=== PATIENT | male | born 2000 | race Hispanic/Latino ===

== ENCOUNTER 2021-06-03 21:58 | Emergency (ER) | payer OTHER ==
[~2021-06-03] VITALS: Ht 170.2 cm; Wt 136.1 kg
[2021-06-03] MEDS ORDERED: ACETAMINOPHEN 325 MG TAB PO ONE (22:15)
[2021-06-03] MEDS ORDERED: ONDANSETRON ODT4 MG PO (23:28)
[2021-06-04] MEDS ORDERED: GUAIFENESIN 600MG/DEXTROMETHORPHAN 30MG TABSR PO SCH (09:00)
== END 2021-06-04 00:35 | disposition home or self-care (01) ==
LOC: ER 22:33
DX: U07.1 COVID-19 (principal); R06.02 Shortness of breath; R05 Cough; R09.81 Nasal congestion; Z71.89 Other specified counseling
CPT/HCPCS: 99283

== ENCOUNTER 2021-06-04 08:41 | Inpatient (IN) | payer OTHER ==
[~2021-06-04] VITALS: Ht 170.2 cm; Wt 136.1 kg
[~2021-06-04 08:41] MED LIST: ONDANSETRON ODT4 MG PO
[2021-06-04 09:25] LABS: BASOPHILS % 0.2 % (0.0-1.0); HEMATOCRIT 44.1 % (38.2-49.6); HEMOGLOBIN 14.7 g/dL (14.0-18.0); LYMPHOCYTES # (AUTO) 1.1 (1.0-3.2); LYMPHOCYTES % 24.3 % (18.0-39.1); MEAN CORPUSCULAR HEMOGLOBIN 29.1 pg (28-32); MEAN CORPUSCULAR HGB CONC 33.3 g/dL (31-35); MEAN CORPUSCULAR VOLUME 87.3 fL (81-99); MONOCYTES # (AUTO) 0.3 (0.2-0.8); MONOCYTES % 5.9 % (4.4-11.3); NEUTROPHILS # (AUTO) 3.1 (2.1-6.9); NEUTROPHILS % 69.4 % (38.7-80.0); PLATELET COUNT 196 x10e3/uL (140-360); RED BLOOD COUNT 5.05 x10e6/uL (4.3-5.7); RED CELL DISTRIBUTION WIDTH 12.4 % (11.7-14.4)
[2021-06-04 09:50] LABS: ALBUMIN 3.8 g/dL (3.5-5.0); ALBUMIN/GLOBULIN RATIO 0.9 (0.8-2.0); ANION GAP 14.1 mmol/L (8-16); CALCIUM 8.7 mg/dL (8.4-10.2); CREATININE, SERUM 0.99 mg/dL (0.72-1.25); POTASSIUM 4.1 mmol/L (3.5-5.1)
[2021-06-04] MEDS: ACETAMINOPHEN 325 MG TAB PO PRN ×3 (10:20→20:14)
[2021-06-04] MEDS ORDERED: REMDESIVIR 200MG/NS 100ML 200 MG in SODIUM CHLORIDE 0.9% 100 ML 100 ML IV ONE (11:45)
[2021-06-04] MEDS ORDERED: ZOLPIDEM TARTRATE 5 MG TAB PO PRN (12:30)
[2021-06-04] MEDS ORDERED: LACTATED RINGER'S 1,000 ML INJ ONE (12:30)
[2021-06-04] MEDS ORDERED: IOPAMIDOL 370 MG/ML 200 ML INFUS..BTL INJ ONE (13:43)
[2021-06-04] MEDS ORDERED: SODIUM CHLORIDE 0.9% 50ML 50 ML ONE (13:43)
[2021-06-04] MEDS: DEXAMETHASONE PHOS 4MG/ML 5ML MULTIDOSE VIAL IV SCH (14:07)
[2021-06-04] MEDS: CEFTRIAXONE 1 GM in SODIUM CHLORIDE 0.9% 50ML 50 ML IV SCH (15:26)
[2021-06-04] MEDS: ASCORBIC ACID 500 MG TAB PO SCH (17:06)
[2021-06-04 18:46] VITALS: BP 118/71
[2021-06-04 19:30] VITALS: BP 118/71
[2021-06-04 20:00] VITALS: BP 111/62
[2021-06-05] VITALS (11 sets, daily range): BP systolic 108–130; BP diastolic 55–78
[2021-06-05 07:49] LABS: BASOPHILS % 0.3 % (0.0-1.0); HEMATOCRIT 43.7 % (38.2-49.6); HEMOGLOBIN 14.3 g/dL (14.0-18.0); LYMPHOCYTES # (AUTO) 1.2 (1.0-3.2); LYMPHOCYTES % 35.7 % (18.0-39.1); MEAN CORPUSCULAR HEMOGLOBIN 28.8 pg (28-32); MEAN CORPUSCULAR HGB CONC 32.7 g/dL (31-35); MEAN CORPUSCULAR VOLUME 88.1 fL (81-99); MONOCYTES # (AUTO) 0.4 (0.2-0.8); MONOCYTES % 11.3 % (4.4-11.3); NEUTROPHILS # (AUTO) 1.7 (2.1-6.9); NEUTROPHILS % 51.8 % (38.7-80.0); PLATELET COUNT 233 x10e3/uL (140-360); RED BLOOD COUNT 4.96 x10e6/uL (4.3-5.7); RED CELL DISTRIBUTION WIDTH 12.3 % (11.7-14.4)
[2021-06-05 08:05] LABS: ALBUMIN 3.4 g/dL (3.5-5.0); ALBUMIN/GLOBULIN RATIO 0.8 (0.8-2.0); ANION GAP 13.9 mmol/L (8-16); CALCIUM 8.7 mg/dL (8.4-10.2); CREATININE, SERUM 0.69 mg/dL (0.72-1.25); POTASSIUM 3.9 mmol/L (3.5-5.1)
[2021-06-05] MEDS: CEFTRIAXONE 1 GM in SODIUM CHLORIDE 0.9% 50ML 50 ML IV SCH (09:36)
[2021-06-05] MEDS: ENOXAPARIN SOD INJ 40 MG/0.4 ML SYR SC SCH (09:36)
[2021-06-05] MEDS: ASCORBIC ACID 500 MG TAB PO SCH ×2 (09:36→17:02)
[2021-06-05] MEDS: ZINC SULFATE 220 MG CAP PO SCH (09:36)
[2021-06-05] MEDS: DEXAMETHASONE PHOS 4MG/ML 5ML MULTIDOSE VIAL IV SCH (10:41)
[2021-06-05] MEDS ORDERED: DEXAMETHASONE SOD PHOS 10 MG/1 ML VIAL ONE (10:50)
[2021-06-05] MEDS ORDERED: REMDESIVIR 100MG/NS 100ML 100 MG in SODIUM CHLORIDE 0.9% 100 ML 100 ML IV SCH (12:00)
[2021-06-05] MEDS: REMDESIVIR 100MG/NS 100ML 100 MG in SODIUM CHLORIDE 0.9% 100 ML 100 ML IV SCH (20:00)
[2021-06-06] VITALS (9 sets, daily range): BP systolic 101–141; BP diastolic 49–76
[2021-06-06 06:21] LABS: HEMATOCRIT 41.3 % (38.2-49.6); HEMOGLOBIN 13.8 g/dL (14.0-18.0); LYMPHOCYTES # (AUTO) 0.9 (1.0-3.2); LYMPHOCYTES % 17.7 % (18.0-39.1); MEAN CORPUSCULAR HEMOGLOBIN 29.4 pg (28-32); MEAN CORPUSCULAR HGB CONC 33.4 g/dL (31-35); MEAN CORPUSCULAR VOLUME 87.9 fL (81-99); MONOCYTES # (AUTO) 0.5 (0.2-0.8); MONOCYTES % 9.8 % (4.4-11.3); NEUTROPHILS # (AUTO) 3.7 (2.1-6.9); NEUTROPHILS % 71.9 % (38.7-80.0); PLATELET COUNT 276 x10e3/uL (140-360); RED CELL DISTRIBUTION WIDTH 12.2 % (11.7-14.4)
[2021-06-06 06:56] LABS: ALBUMIN 3.2 g/dL (3.5-5.0); ALBUMIN/GLOBULIN RATIO 0.8 (0.8-2.0); CALCIUM 8.2 mg/dL (8.4-10.2); CREATININE, SERUM 0.7 mg/dL (0.72-1.25); MAGNESIUM 2.1 MG/DL (1.3-2.1)
[2021-06-06] MEDS: ASCORBIC ACID 500 MG TAB PO SCH ×2 (09:13→16:45)
[2021-06-06] MEDS: CEFTRIAXONE 1 GM in SODIUM CHLORIDE 0.9% 50ML 50 ML IV SCH (09:13)
[2021-06-06] MEDS: DEXAMETHASONE SOD PHOS 10 MG/1 ML VIAL IV SCH (09:13)
[2021-06-06] MEDS: ZINC SULFATE 220 MG CAP PO SCH (09:14)
[2021-06-06] MEDS: ENOXAPARIN SOD INJ 40 MG/0.4 ML SYR SC SCH (09:14)
[2021-06-06] MEDS ORDERED: SODIUM CHLORIDE 0.9% 250ML 250 ML ONE (09:40)
[2021-06-06] MEDS ORDERED: SALINE 0.65% NAS SOLN 1 SPRAY BTL PRN ×2 (18:15)
[2021-06-06] MEDS: REMDESIVIR 100MG/NS 100ML 100 MG in SODIUM CHLORIDE 0.9% 100 ML 100 ML IV SCH (21:02)
[2021-06-07] VITALS (8 sets, daily range): BP systolic 109–130; BP diastolic 65–88
[2021-06-07] MEDS ORDERED: GUAIFENESIN 200 MG/10 ML UDC PO PRN (05:45)
[2021-06-07] MEDS: ZINC SULFATE 220 MG CAP PO SCH (09:43)
[2021-06-07] MEDS: DEXAMETHASONE SOD PHOS 10 MG/1 ML VIAL IV SCH (09:43)
[2021-06-07] MEDS: ASCORBIC ACID 500 MG TAB PO SCH ×2 (09:43→17:23)
[2021-06-07] MEDS: ENOXAPARIN SOD INJ 40 MG/0.4 ML SYR SC SCH (09:43)
[2021-06-07] MEDS: REMDESIVIR 100MG/NS 100ML 100 MG in SODIUM CHLORIDE 0.9% 100 ML 100 ML IV SCH (20:08)
[2021-06-08] VITALS (12 sets, daily range): BP systolic 104–131; BP diastolic 51–85
[2021-06-08 04:55] LABS: BASOPHILS % 0.2 % (0.0-1.0); HEMATOCRIT 41.6 % (38.2-49.6); HEMOGLOBIN 13.5 g/dL (14.0-18.0); LYMPHOCYTES # (AUTO) 1.1 (1.0-3.2); LYMPHOCYTES % 18.8 % (18.0-39.1); MEAN CORPUSCULAR HEMOGLOBIN 28.6 pg (28-32); MEAN CORPUSCULAR HGB CONC 32.5 g/dL (31-35); MEAN CORPUSCULAR VOLUME 88.1 fL (81-99); MONOCYTES # (AUTO) 0.9 (0.2-0.8); MONOCYTES % 14.7 % (4.4-11.3); NEUTROPHILS % 65.8 % (38.7-80.0); PLATELET COUNT 269 x10e3/uL (140-360); RED BLOOD COUNT 4.72 x10e6/uL (4.3-5.7)
[2021-06-08 05:30] LABS: ALBUMIN/GLOBULIN RATIO 0.8 (0.8-2.0); ANION GAP 15.1 mmol/L (8-16); CALCIUM 8.6 mg/dL (8.4-10.2); CREATININE, SERUM 0.67 mg/dL (0.72-1.25); POTASSIUM 4.1 mmol/L (3.5-5.1)
[2021-06-08 05:45] LABS: LYMPHOCYTES % (MANUAL) 16 % (19-48); MONOCYTES % (MANUAL) 16 % (3.4-9.0); NEUTROPHILS % (MANUAL) 68 % (40-74); PLATELET ESTIMATE ADEQUATE; PLATELET MORPHOLOGY COMMENT NORMAL; RBC MORPHOLOGY COMMENT NORMAL
[2021-06-08] MEDS: ZINC SULFATE 220 MG CAP PO SCH (08:12)
[2021-06-08] MEDS: ENOXAPARIN SOD INJ 40 MG/0.4 ML SYR SC SCH (08:12)
[2021-06-08] MEDS: ASCORBIC ACID 500 MG TAB PO SCH ×2 (08:12→17:07)
[2021-06-08] MEDS: DEXAMETHASONE SOD PHOS 10 MG/1 ML VIAL IV SCH (08:12)
[2021-06-08] MEDS: REMDESIVIR 100MG/NS 100ML 100 MG in SODIUM CHLORIDE 0.9% 100 ML 100 ML IV SCH (20:46)
[2021-06-09] VITALS (8 sets, daily range): BP systolic 121–150; BP diastolic 74–93
[2021-06-09] MEDS: DEXAMETHASONE SOD PHOS 10 MG/1 ML VIAL IV SCH (09:28)
[2021-06-09] MEDS: ZINC SULFATE 220 MG CAP PO SCH (09:28)
[2021-06-09] MEDS: ENOXAPARIN SOD INJ 40 MG/0.4 ML SYR SC SCH (09:28)
[2021-06-09] MEDS: ASCORBIC ACID 500 MG TAB PO SCH ×2 (09:28→17:33)
[2021-06-10] VITALS (7 sets, daily range): BP systolic 110–137; BP diastolic 66–97
[2021-06-10] MEDS: ZINC SULFATE 220 MG CAP PO SCH (09:31)
[2021-06-10] MEDS: ENOXAPARIN SOD INJ 40 MG/0.4 ML SYR SC SCH (09:31)
[2021-06-10] MEDS: ASCORBIC ACID 500 MG TAB PO SCH ×2 (09:31→17:23)
[2021-06-10] MEDS: DEXAMETHASONE SOD PHOS 10 MG/1 ML VIAL IV SCH (09:31)
[2021-06-11] VITALS (8 sets, daily range): BP systolic 103–124; BP diastolic 67–77
[2021-06-11] MEDS: DEXAMETHASONE SOD PHOS 10 MG/1 ML VIAL IV SCH (10:13)
[2021-06-11] MEDS: ENOXAPARIN SOD INJ 40 MG/0.4 ML SYR SC SCH (10:13)
[2021-06-11] MEDS: ZINC SULFATE 220 MG CAP PO SCH (10:13)
[2021-06-11] MEDS: ASCORBIC ACID 500 MG TAB PO SCH ×2 (10:13→16:50)
[2021-06-12] VITALS: BP 121/81
[2021-06-12 04:00] VITALS: BP 125/69
[2021-06-12] MEDS: ASCORBIC ACID 500 MG TAB PO SCH (07:48)
[2021-06-12] MEDS: DEXAMETHASONE SOD PHOS 10 MG/1 ML VIAL IV SCH (07:48)
[2021-06-12] MEDS: ZINC SULFATE 220 MG CAP PO SCH (07:48)
[2021-06-12] MEDS: ENOXAPARIN SOD INJ 40 MG/0.4 ML SYR SC SCH (07:48)
[2021-06-12 08:02] VITALS: BP 121/86
[2021-06-12 08:05] VITALS: BP 121/86
[2021-06-12 11:37] VITALS: BP 133/85
== END 2021-06-12 17:26 | disposition home or self-care (01) | DRG 177 ==
LOC: ER 08:48 → ERHOLD 09:13 → IMCU 18:54
PROVIDERS: ADMIT Internal Medicine; ATTEND Internal Medicine
PROC: 8E0ZXY6 Isolation (ICD-10-PCS; principal; 2021-06-04)
PROC: 02HV33Z Insertion of Infusion Device into Superior Vena Cava, Percutaneous Approach (ICD-10-PCS; 2021-06-05)
PROC: XW043E5 Introduction of Remdesivir Anti-infective into Central Vein, Percutaneous Approach, New Technology Group 5 (ICD-10-PCS; 2021-06-05)
DX: U07.1 COVID-19 (principal); J12.9 Viral pneumonia, unspecified; J96.01 Acute respiratory failure with hypoxia; Z68.42 Body mass index [BMI] 45.0-49.9, adult; E66.01 Morbid (severe) obesity due to excess calories; D64.9 Anemia, unspecified
CPT/HCPCS: 36415; 36569; 71045; 71260; 80053; 82728; 83735; 85025; 86140; 96365; 97139; 99284; J0456; J0696; J1100; J1650; J7050; J7121; Q9967